=== PATIENT | female | born 1965 | race African-American/Black ===

== ENCOUNTER → 2017-05-29 | Day surgery (SDC) | payer OTHER ==
--- NOTE | 2017-05-30 14:25 | PATH ---
Cytology Non-Gynecological Report Patient Name: RUFUS JOYCE [facility]. Rec. #: [id number] /Age/Gender: 1965 (Age: 51) / F Account: [id number] Location: RADIOLOGY Taken: 05/29/2017 Received: 05/29/2017 Reported: 05/30/2017 Physicians: Jose Escobedo M.D. Specimen(s) Received RIGHT THYROID FNA Clinical History Right thyroid nodule, 3.60 x 2.12 x 2.05 cm Final Diagnosis THYROID GLAND, RIGHT LOBE, US GUIDED FINE NEEDLE ASPIRATION BIOPSY: SATISFACTORY FOR EVALUATION DUE TO THE PRESENCE OF COLLOID. SCATTERED BLAND APPEARING FOLLICULAR EPITHELIAL CELLS AND COLLOID SUGGESTIVE OF NODULAR GOITER (SEE COMMENT). Comment: The smears show scattered bland appearing follicular epithelial cells and colloid. The findings are suggestive of nodular goiter ([place] category II, benign). Clinical, imaging correlations and followup are suggested. Electronically Signed Gabriel Cuellar M.D. Gross Description Received are four air dried smears, four smears in 95% alcohol, and 20 cc of bloody fluid in formalin. Four diff-quik stained slides, four Pap stained slides and one cell block are made.
== END | disposition home or self-care (01) ==
LOC: JRADIR 09:09
PROVIDERS: ATTEND Internal Medicine Endocrinology, Diabetes & Metabolism
PROC: 0G9H3ZX Drainage of Right Thyroid Gland Lobe, Percutaneous Approach, Diagnostic (ICD-10-PCS; principal; 2017-05-29)
PROC: BG44ZZZ Ultrasonography of Thyroid Gland (ICD-10-PCS; 2017-05-29)
DX: E04.1 Nontoxic single thyroid nodule (principal)
CPT/HCPCS: 76942; 88173; 88305-TC

== ENCOUNTER 2022-07-20 05:05 | Day surgery (SDC) | payer OTHER ==
[2022-07-15 14:44] VITALS: BMI 33.1
[2022-07-20 06:55] VITALS: RESP 20
[2022-07-20] MEDS ORDERED: ONDANSETRON 4 MG/2 ML VIAL ONE (07:37)
[2022-07-20] MEDS ORDERED: LIDOCAINE HCL/PF 2% SDV 5ML VIAL ONE ×2 (07:37→07:39)
[2022-07-20] MEDS ORDERED: DEXAMETHASONE SOD PHOSPHATE 4 MG/1 ML VIAL ONE (07:37)
[2022-07-20] MEDS ORDERED: KETOROLAC TROMETHAMINE 30 MG/1 ML VIAL ONE (07:37)
[2022-07-20] MEDS ORDERED: MIDAZOLAM HCL 2 MG/2 ML SINGLE DOSE VIAL ONE (07:39)
[2022-07-20] MEDS ORDERED: PROPOFOL 40 ML ONE (07:39)
[2022-07-20] MEDS ORDERED: LIDOCAINE HCL 1%, 10 MG/ML (20ML VIAL) ONE (07:40)
[2022-07-20] MEDS ORDERED: BUPIVACAINE HCL/PF 0.5% (5MG/ML) 10 ML VIAL ONE (07:42)
[2022-07-20] MEDS ORDERED: ceFAZolin 2 GRAM PREMIX BAG IVPB ONE (08:15)
[2022-07-20] MEDS ORDERED: BUPIVACAINE HCL/PF 0.5% (5MG/ML) 10 ML VIAL IJ ONE (08:25)
[2022-07-20] MEDS ORDERED: LIDOCAINE HCL 1%, 10 MG/ML (20ML VIAL) INF ONE (08:25)
[2022-07-20] MEDS ORDERED: oxyCODONE HCL 5 MG TABLET PO PRN ×2 (08:39)
[2022-07-20] MEDS ORDERED: ONDANSETRON 4 MG/2 ML VIAL IVPUSH PRN (08:39)
[2022-07-20] MEDS ORDERED: LACTATED RINGERS SOLUTION 1,000 ML IV SCH (08:45)
[2022-07-20 12:45] VITALS: BP 120/80; PULSE 60; TEMP 98
== END 2022-07-20 12:35 | disposition home or self-care (01) ==
LOC: JASU-SURG 05:05
PROVIDERS: ATTEND Orthopaedic Surgery
PROC: 0LB70ZZ Excision of Right Hand Tendon, Open Approach (ICD-10-PCS; 2022-07-20)
PROC: 0LN70ZZ Release Right Hand Tendon, Open Approach (ICD-10-PCS; principal; 2022-07-20 08:00)
DX: M65.311 Trigger thumb, right thumb (principal); M65.841 Other synovitis and tenosynovitis, right hand; E11.9 Type 2 diabetes mellitus without complications; Z79.84 Long term (current) use of oral hypoglycemic drugs
CPT/HCPCS: 88304-TC

== ENCOUNTER 2025-03-03 06:15 | Day surgery (SDC) | payer OTHER ==
[2025-02-24 13:31] VITALS: BMI 31.1
[2025-03-03 10:23] VITALS: TEMP 97.6
[2025-03-03 10:32] VITALS: RESP 18
[2025-03-03 11:36] VITALS: BP 173/93; PULSE 62
== END 2025-03-03 11:37 | disposition home or self-care (01) ==
LOC: JASU-ENDO 06:15
PROVIDERS: ATTEND Internal Medicine Gastroenterology
PROC: 0DBH8ZX Excision of Cecum, Via Natural or Artificial Opening Endoscopic, Diagnostic (ICD-10-PCS; principal; 2025-03-03 09:00)
DX: Z12.11 Encounter for screening for malignant neoplasm of colon (principal); D12.0 Benign neoplasm of cecum; K57.30 Diverticulosis of large intestine without perforation or abscess without bleeding; K64.8 Other hemorrhoids
CPT/HCPCS: 82962; 88305-TC

== ENCOUNTER 2025-09-02 15:49 | Emergency (ER) | payer OTHER ==
[2025-09-02 15:59] VITALS: BMI 32.5
[2025-09-02] MEDS ORDERED: ACETAMINOPHEN INJECTION 100 ML ONE (16:59)
[2025-09-02] MEDS ORDERED: METOCLOPRAMIDE HCL INJECTION 10 MG/2 ML VIAL ONE (16:59)
[2025-09-02 17:00] LABS: ABSOLUTE IMMATURE GRANULOCYTES 0.01 x10^3/uL (0.0-0.031); BASOPHILS # 0.01 x10^3/uL (0.01-0.08); EOSINOPHIL % 3.3 % (0.7-5.8); EOSINOPHILS # 0.20 x10^3/uL (0.04-0.36); MCHC 30.5 g/dl (32.2-35.5); MEAN CELL VOLUME 86.9 fl (79.4-94.8); MEAN PLT VOLUME 9.0 fl (9.4-12.3); MONOCYTE # 0.59 x10^3/uL (0.24-0.86); MONOCYTE % 9.7 % (4.7-12.5); RDW 13.0 % (12.3-16.6)
[2025-09-02] MEDS ORDERED: MAGNESIUM SULFATE IN WATER 2 GM/50 ML IVPB IVPB ONE (17:00)
[2025-09-02] MEDS: METOCLOPRAMIDE HCL INJECTION 10 MG/2 ML VIAL IVPUSH ONE (17:00)
[2025-09-02] MEDS: MAGNESIUM SULFATE IN WATER 2 GM/50 ML IVPB IVPB ONE (17:00)
[2025-09-02] MEDS: SODIUM CHLORIDE 0.9% 500 ML INFUS.BAG IV ONE (17:00)
[2025-09-02] MEDS: ACETAMINOPHEN 1000 MG/100 ML BAG IVPB ONE (17:00)
[2025-09-02 17:33] LABS: GLUCOSE,RANDOM 160.0 mg/dL (74-106); TOT PROT 7.1 g/dl (6.4-8.2)
[2025-09-02 17:34] LABS: CO2 28.0 mmol/L (21-32)
[2025-09-02 17:36] LABS: ALK PHOS 140.0 U/L (40-150)
[2025-09-02 17:39] LABS: CREATININE 0.81 mg/dL (0.55-1.3); SGOT/AST 24.0 U/L (5-34); SGPT/ALT 25.0 U/L (0-55)
[2025-09-02 18:11] LABS: HCV DIAGNOSTIC IN-HOUSE W/RFLX NON-REACTIVE (NONREACTIVE)
[2025-09-02 18:12] LABS: HIV INTERPRETATION NEGATIVE (NEGATIVE)
[2025-09-02 18:49] LABS: URINE APPEARANCE CLEAR; URINE BILIRUBIN NEGATIVE (NEGATIVE); URINE COLOR YELLOW; URINE GLUCOSE (UA) NEGATIVE (NEGATIVE); URINE KETONE NEGATIVE (NEGATIVE); URINE LEUK ESTERASE NEGATIVE (NEGATIVE); URINE NITRITE NEGATIVE (NEGATIVE); URINE PROTEIN NEGATIVE (NEGATIVE); URINE UROBILINOGEN 0.2 mg/dL (0.2-1.0)
[2025-09-02 19:21] VITALS: BP 145/82; PULSE 68; RESP 22; TEMP 97.6
== END 2025-09-02 20:04 | disposition home or self-care (01) ==
LOC: JER 15:49
PROC: 3E033GC Introduction of Other Therapeutic Substance into Peripheral Vein, Percutaneous Approach (ICD-10-PCS; principal; 2025-09-02)
PROC: 3E033GC Introduction of Other Therapeutic Substance into Peripheral Vein, Percutaneous Approach (ICD-10-PCS; 2025-09-02)
PROC: 3E033NZ Introduction of Analgesics, Hypnotics, Sedatives into Peripheral Vein, Percutaneous Approach (ICD-10-PCS; 2025-09-02)
DX: R51.9 Headache, unspecified (principal); R94.31 Abnormal electrocardiogram [ECG] [EKG]
CPT/HCPCS: 36415; 70450-TC; 80053; 81003; 85025; 86803; 87086; 87389; 93005; 93010; 99285-25